=== PATIENT | female | born 2000 | race Caucasian/White ===

== ENCOUNTER 2020-11-17 13:08 | Emergency (ER) | payer MEDICAID ==
[~2020-11-17] VITALS: Ht 172.7 cm; Wt 136.0 kg
[2020-11-17 13:21] VITALS: BP 154/104
[2020-11-17] MEDS ORDERED: CIPHCO RIGHT EAR (15:22)
[2020-11-17] MEDS ORDERED: AMOX-424 MT (15:24)
== END 2020-11-17 16:49 | disposition home or self-care (01) ==
LOC: ER 14:09
DX: H92.01 Otalgia, right ear (principal); Z98.890 Other specified postprocedural states
CPT/HCPCS: 99282